=== PATIENT | female | born 1965 | race Caucasian/White ===

== ENCOUNTER 2017-05-15 10:01 | Emergency (ER) | payer OTHER ==
[2017-05-15 10:06] VITALS: RESP 16
--- NOTE | 2017-05-15 10:36 | EDPHY ---
H & P Time Seen by Provider: 05/15/17 10:04 HPI/ROS: Chief complaint. Malaise, fall HPI. 51-year-old female has been sick for 7-10 days with decreased p.o. intake. It began red nausea and fever. She has not been eating for 4-5 days. She got lightheaded and dizzy and fell this morning injuring her right arm. She has slight cough. No urinary symptoms or diarrhea. Some pain with urinating. Patient lives by herself. No chest discomfort or shortness of breath. ROS Constitutional. Fever Eyes. no problems with vision ENT. no sore throat, no nasal drainage Cardiovascular. no chest pain Respiratory. No shortness of breath however cough Abdominal. No abdominal pain but nausea and vomiting . Dysuria MS. Fall with bruise right arm Skin. no rash Lymph. no swollen glands Neuro. Lightheaded on standing today and difficulty walking Past Medical/Surgical History: Heart palpitations Social History: Lives by self. Nonsmoker. Drinks alcohol regularly Physical Exam: General Appearance: Alert well-developed female mild distress vital signs are stable. Eyes: Pupils equal and round no pallor or injection. ENT, Mouth: Mucous membranes are dry. Respiratory: There are no retractions, lungs are clear to auscultation. Cardiovascular: Regular rate and rhythm. Gastrointestinal: Abdomen is soft and nontender, no masses, bowel sounds normal. Neurological: Awake and alert, sensory and motor exams grossly normal. Skin: Warm and dry, no rashes. Musculoskeletal: Neck is supple nontender. Extremities bruise right forearm with good range of motion Psychiatric: Patient is oriented X 3, patient is tremulous Constitutional: Initial Vital Signs Temperature (C) 37.3 C 05/15/17 10:02 Heart Rate 84 05/15/17 10:02 Respiratory Rate 16 05/15/17 10:02 Blood Pressure 152/101 H 05/15/17 10:02 O2 Sat (%) 96 05/15/17 10:02 O2 Delivery Mode Room Air Allergies/Adverse Reactions: No Known Allergies Allergy (Unverified 11/18/09 09:16) Home Medications: Medication Instructions Recorded None 11/18/09 Medical Decision Making - Diagnostics Imaging Results: Imaging Impressions Chest X-Ray 05/15/17 10:50 Impression: No acute pulmonary disease. Procedures: IV normal saline. Ativan and Zofran IV ED Course/Re-evaluation: Re-evaluation 12:30 p.m. patient is stable. The patient and I had a long discussion because I think alcohol is a little significant part of this. She has elevated liver function test. She is clearly tremulous. She and I discussed depression and drinking to self medicate for depression. I encouraged her to consider discussing this with her regular physician. I have also discussed this with her brother with her permission. Patient feels she is safe at home currently for discharge. Differential Diagnosis: This certainly may have started with a viral illness causing fever and nausea vomiting. Decreased intake. Symptoms of alcohol withdrawal. Fall with bruising but no evidence for fracture. Dehydration is present. - Data Points Laboratory Results: Laboratory Results 05/15/17 09:55 05/15/17 09:55 05/15/17 05/15/17 05/15/17 11:40 09:55 09:55 WBC 3.60 10^3/uL L 10^3/uL (3.80-9.50) RBC 4.83 10^6/uL 10^6/uL (4.18-5.33) Hgb 16.3 g/dL g/dL (12.6-16.3) Hct 46.2 % % (38.0-47.0) MCV 95.7 fL fL (81.5-99.8) MCH 33.7 pg pg (27.9-34.1) MCHC 35.3 g/dL g/dL (32.4-36.7) RDW 11.8 % % (11.5-15.2) Plt Count 96 10^3/uL L 10^3/uL (150-400) MPV 9.9 fL fL (8.7-11.7) Neut % (Auto) 63.9 % % (39.3-74.2) Lymph % (Auto) 18.6 % % (15.0-45.0) [place] % (Auto) 15.8 % H % (4.5-13.0) Eos % (Auto) 0.8 % % (0.6-7.6) Baso % (Auto) 0.6 % % (0.3-1.7) Nucleat RBC Rel Count 0.0 % % (0.0-0.2) Absolute Neuts (auto) 2.30 10^3/uL 10^3/uL (1.70-6.50) Absolute Lymphs (auto) 0.67 10^3/uL L 10^3/uL (1.00-3.00) Absolute Monos (auto) 0.57 10^3/uL 10^3/uL (0.30-0.80) Absolute Eos (auto) 0.03 10^3/uL 10^3/uL (0.03-0.40) Absolute Basos (auto) 0.02 10^3/uL 10^3/uL (0.02-0.10) Absolute Nucleated RBC 0.00 10^3/uL 10^3/uL (0-0.01) Immature Gran % 0.3 % % (0.0-1.1) Immature Gran # 0.01 10^3/uL 10^3/uL (0.00-0.10) Sodium 135 mEq/L mEq/L (134-144) Potassium 3.9 mEq/L mEq/L (3.5-5.2) Chloride 94 mEq/L L mEq/L (97-110) Carbon Dioxide 25 mEq/l mEq/l (22-31) Anion Gap 16 mEq/L mEq/L (8-16) BUN 9 mg/dL mg/dL (7-23) Creatinine 0.5 mg/dL L mg/dL (0.6-1.0) Estimated GFR > 60 Glucose 101 mg/dL H mg/dL (70-100) Calcium 10.5 mg/dL H mg/dL (8.5-10.4) Total Bilirubin 1.0 mg/dL mg/dL (0.1-1.4) Conjugated Bilirubin 0.5 mg/dL mg/dL (0.0-0.5) Unconjugated Bilirubin 0.5 mg/dL mg/dL (0.0-1.1) AST 141 IU/L H IU/L (14-46) ALT 105 IU/L H IU/L (9-52) Alkaline Phosphatase 100 IU/L IU/L (38-126) Total Protein 8.7 g/dL H g/dL (6.3-8.2) Albumin 5.0 g/dL g/dL (3.5-5.0) Lipase 272.0 IU/L IU/L (23-300) Urine Color PALE YELLOW Urine Appearance CLEAR Urine pH 7.0 (5.0-7.5) Ur Specific [place] 1.006 (1.002-1.030) Urine Protein NEGATIVE (NEGATIVE) Urine Ketones TRACE H (NEGATIVE) Urine Blood NEGATIVE (NEGATIVE) Urine Nitrate NEGATIVE (NEGATIVE) Urine Bilirubin NEGATIVE (NEGATIVE) Urine Urobilinogen NEGATIVE EU EU (0.2-1.0) Ur Leukocyte Esterase NEGATIVE (NEGATIVE) Urine Glucose NEGATIVE (NEGATIVE) Medications Given: Discontinued Medications Acetaminophen (Tylenol) 1,000 mg PO EDNOW ONE Stop: 05/15/17 11:08 Last Admin: 05/15/17 11:12 Dose: 1,000 mg Sodium Chloride (Ns) 1,000 mls @ 0 mls/hr IV ONCE ONE; Wide Open PRN Reason: Protocol Stop: 05/15/17 10:51 Last Admin: 05/15/17 10:59 Dose: 1,000 mls Sodium Chloride (Ns) 1,000 mls @ 0 mls/hr IV ONCE ONE; Wide Open PRN Reason: Protocol Stop: 05/15/17 10:51 Last Admin: 05/15/17 10:59 Dose: 1,000 mls Lorazepam (Ativan Injection) 1 mg IVP EDNOW ONE Stop: 05/15/17 10:52 Last Admin: 05/15/17 10:59 Dose: 1 mg Ondansetron HCl (Zofran) 4 mg IVP EDNOW ONE Stop: 05/15/17 10:51 Last Admin: 05/15/17 11:00 Dose: 4 mg Departure - Departure Disposition: Home, Routine, Self-Care Clinical Impression: Dehydration Condition: Good Instructions: Dehydration (ED) Additional Instructions: Frequent, small sips fluids well nauseated. Gradual diet advancement. Return for worsening symptoms. Please follow-up with your physician at [place] in the next 2-3 days for re-evaluation Referrals: Patient,NotPresent [Unknown] - As per Instructions [facility] [Outside] - 2-3 days, call for appt.
[2017-05-15] MEDS ORDERED: NS 1,000 ML IV ONE ×2 (10:50)
[2017-05-15] MEDS ORDERED: ONDANSETRON 4 MG/2 ML VIAL IVP ONE (10:50)
[2017-05-15] MEDS ORDERED: LORazepam 2 MG/ML INJ IVP ONE (10:51)
[2017-05-15 11:04] LABS: % IMMATURE GRANULYOCYTES 0.3 % (0.0-1.1); ABSOLUTE IMMATURE GRANULOCYTES 0.01 10^3/uL (0.00-0.10); ADD DIFF? NO; ADD MORPH? NO; ADD SCAN? NO; ATYPICAL LYMPHOCYTE FLAG 0 (0-99); FRAGMENT RBC FLAG 0 (0-99); HEMATOCRIT 46.2 % (38.0-47.0); HEMOGLOBIN 16.3 g/dL (12.6-16.3); LEFT SHIFT FLG 0 (0-99); LIPEMIA HEMOLYSIS FLAG 90 (0-99); MEAN CELL HEMOGLOBIN 33.7 pg (27.9-34.1); MEAN CELL HEMOGLOBIN CONCENTR. 35.3 g/dL (32.4-36.7); MEAN CELL VOLUME 95.7 fL (81.5-99.8); MEAN PLATELET VOLUME 9.9 fL (8.7-11.7); PLATELET CLUMPS FLAG 0 (0-99); PLATELET COUNT 96 10^3/uL (150-400); RED BLOOD CELL COUNT 4.83 10^6/uL (4.18-5.33); RED CELL DISTRIBUTION WIDTH 11.8 % (11.5-15.2)
[2017-05-15] MEDS ORDERED: ACETAMINOPHEN 500 MG TAB PO ONE (11:07)
[2017-05-15 11:08] LABS: ALANINE AMINOTRANSFERASE 105 IU/L (9-52); ALKALINE PHOSPHATASE 100 IU/L (38-126); ANION GAP 16 mEq/L (8-16); ASPARTATE AMINOTRANSFERASE 141 IU/L (14-46); BILIRUBIN-CONJUGATED 0.5 mg/dL (0.0-0.5); BILIRUBIN-UNCONJUGATED 0.5 mg/dL (0.0-1.1); CALCIUM 10.5 mg/dL (8.5-10.4); CARBON DIOXIDE 25 mEq/l (22-31); CHLORIDE 94 mEq/L (97-110); CREATININE 0.5 mg/dL (0.6-1.0); GLOMERULAR FILTRATION RATE > 60; GLUCOSE 101 mg/dL (70-100); POTASSIUM 3.9 mEq/L (3.5-5.2); SODIUM 135 mEq/L (134-144); TOTAL PROTEIN 8.7 g/dL (6.3-8.2)
[2017-05-15] MEDS ORDERED: ACETAMINOPHEN 500 MG TAB ONE (11:08)
[2017-05-15 12:06] LABS: COLOR PALE YELLOW; LEUKOCYTE ESTERASE,URINE NEGATIVE (NEGATIVE); NITRITE,URINE NEGATIVE (NEGATIVE)
[2017-05-15 13:46] VITALS: BP 130/74; PULSE 98; TEMP 98.4; O2SAT 94
== END 2017-05-15 13:36 | disposition home or self-care (01) ==
LOC: EDUNIT#
DX: E86.0 Dehydration (principal)
CPT/HCPCS: 96374; J2060; J2405

== ENCOUNTER 2017-06-19 12:01 | Emergency (ER) | payer OTHER ==
[2017-06-19 12:25] VITALS: TEMP 98.4
--- NOTE | 2017-06-19 13:56 | EDPHY ---
H & P Time Seen by Provider: 06/19/17 13:55 HPI/ROS: Chief complaint. Fever, nausea HPI. A 51-year-old female with subjective fevers for 2 days. Slight cough. Nausea and vomiting but no diarrhea. No abdominal pain. No urinary symptoms. She is quite tremulous. Denies any trauma or falls. Denies any chest discomfort or shortness of breath. ROS Constitutional. Fever Eyes. no problems with vision ENT. no sore throat, no nasal drainage Cardiovascular. no chest pain Respiratory. Cough Abdominal. nausea and vomiting . no problems urinating MS. no calf pain/swelling, no neck/back pain, no joint pain Skin. no rash Lymph. no swollen glands Neuro. Tremulous Past Medical/Surgical History: Heart palpitations, Social History: Single, nonsmoker the, the denies recent alcohol Smoking Status: Former smoker Physical Exam: General Appearance: Alert well-developed female tremulous vital signs significant for heart rate 101 Eyes: Pupils equal and round no pallor or injection. ENT, Mouth: Mucous membranes are dry. Respiratory: There are no retractions, lungs are clear to auscultation. Cardiovascular: Regular rate and rhythm. Gastrointestinal: Abdomen is soft and nontender, no masses, bowel sounds normal. Neurological: Awake and alert, sensory and motor exams grossly normal. Skin: Warm and dry, no rashes. Bruising of various ages on extremities Musculoskeletal: Neck is supple nontender. Extremities symmetrical, full range of motion. Psychiatric: Patient is oriented X 3, there is no agitation. Constitutional: Initial Vital Signs Temperature (C) 36.9 C 06/19/17 12:20 Heart Rate 101 H 06/19/17 12:20 Respiratory Rate 20 06/19/17 12:20 Blood Pressure 139/95 H 06/19/17 12:20 O2 Sat (%) 98 06/19/17 12:20 O2 Delivery Mode Room Air Allergies/Adverse Reactions: No Known Allergies Allergy (Verified 06/19/17 12:24) Home Medications: Medication Instructions Recorded None 11/18/09 Cephalexin [Keflex (*)] 500 mg PO TID #21 cap 06/19/17 Medical Decision Making - Diagnostics Imaging Results: Imaging Impressions Chest X-Ray 06/19/17 14:10 Impression: Normal chest x-ray. Chest x-ray interpreted by me is normal Procedures: IV normal saline with initially 1 L to be given. Ativan and Zofran 4 tremulousness and nausea After review of labs more IV fluids are indicated Repeat chemistry panel after 3 L of saline ED Course/Re-evaluation: Serial re-evaluations patient continues To improve Re-evaluation again at 6:30 p.m. patient is feeling much better has no complaints. She is taking oral fluids. Patient and I discussed repeat labs which are improved. We discussed treatment plan including criteria for return importance of follow-up further evaluation. She expresses understanding and agreement Differential Diagnosis: Clearly the patient exhibits alcohol withdrawal symptoms. I suspect she has had decreased p.o. intake. She does have urinary tract infection. Normal chest x- ray without evidence for pneumonia - Data Points Laboratory Results: Laboratory Results 06/19/17 13:50 06/19/17 17:45 06/19/17 06/19/17 06/19/17 17:45 14:53 13:50 WBC RBC Hgb Hct MCV MCH MCHC RDW Plt Count MPV Neut % (Auto) Lymph % (Auto) [place] % (Auto) Eos % (Auto) Baso % (Auto) Nucleat RBC Rel Count Absolute Neuts (auto) Absolute Lymphs (auto) Absolute Monos (auto) Absolute Eos (auto) Absolute Basos (auto) Absolute Nucleated RBC Immature Gran % Immature Gran # Sodium 138 mEq/L mEq/L 139 mEq/L mEq/L (134-144) (134-144) Potassium 4.2 mEq/L mEq/L 4.5 mEq/L mEq/L (3.5-5.2) (3.5-5.2) Chloride 111 mEq/L H D mEq/L 100 mEq/L mEq/L (97-110) (97-110) Carbon Dioxide 16 mEq/l L mEq/l 13 mEq/l L mEq/l (22-31) (22-31) Anion Gap 11 mEq/L mEq/L 26 mEq/L H mEq/L (8-16) (8-16) BUN 10 mg/dL mg/dL 14 mg/dL mg/dL (7-23) (7-23) Creatinine 0.5 mg/dL L mg/dL 0.6 mg/dL mg/dL (0.6-1.0) (0.6-1.0) Estimated GFR > 60 > 60 Glucose 121 mg/dL H D mg/dL 63 mg/dL L mg/dL (70-100) (70-100) Calcium 7.8 mg/dL L D mg/dL 10.2 mg/dL mg/dL (8.5-10.4) (8.5-10.4) Urine Color YELLOW Urine Appearance CLEAR Urine pH 5.0 (5.0-7.5) Ur Specific [place] 1.024 (1.002-1.030) Urine Protein 1+ H (NEGATIVE) Urine Ketones 2+ H (NEGATIVE) Urine Blood NEGATIVE (NEGATIVE) Urine Nitrate NEGATIVE (NEGATIVE) Urine Bilirubin NEGATIVE (NEGATIVE) Urine Urobilinogen NEGATIVE EU EU (0.2-1.0) Ur Leukocyte Esterase NEGATIVE (NEGATIVE) Urine RBC 1-3 /hpf /hpf (0-3) Urine WBC 5-10 /hpf H /hpf (0-3) Ur Epithelial Cells TRACE /lpf /lpf (NONE-1+) Hyaline Casts 1-5 /lpf /lpf (0-1) Urine Mucus TRACE /lpf /lpf (NONE-1+) Urine Glucose NEGATIVE (NEGATIVE) Ethyl Alcohol < 10 mg/dL mg/dL (0-10) 06/19/17 13:50 WBC 3.71 10^3/uL L 10^3/uL (3.80-9.50) RBC 4.31 10^6/uL 10^6/uL (4.18-5.33) Hgb 14.1 g/dL g/dL (12.6-16.3) Hct 41.8 % % (38.0-47.0) MCV 97.0 fL fL (81.5-99.8) MCH 32.7 pg pg (27.9-34.1) MCHC 33.7 g/dL g/dL (32.4-36.7) RDW 11.9 % % (11.5-15.2) Plt Count 173 10^3/uL 10^3/uL (150-400) MPV 9.0 fL fL (8.7-11.7) Neut % (Auto) 68.1 % % (39.3-74.2) Lymph % (Auto) 17.3 % % (15.0-45.0) [place] % (Auto) 12.7 % % (4.5-13.0) Eos % (Auto) 0.3 % L % (0.6-7.6) Baso % (Auto) 1.3 % % (0.3-1.7) Nucleat RBC Rel Count 0.0 % % (0.0-0.2) Absolute Neuts (auto) 2.53 10^3/uL 10^3/uL (1.70-6.50) Absolute Lymphs (auto) 0.64 10^3/uL L 10^3/uL (1.00-3.00) Absolute Monos (auto) 0.47 10^3/uL 10^3/uL (0.30-0.80) Absolute Eos (auto) 0.01 10^3/uL L 10^3/uL (0.03-0.40) Absolute Basos (auto) 0.05 10^3/uL 10^3/uL (0.02-0.10) Absolute Nucleated RBC 0.00 10^3/uL 10^3/uL (0-0.01) Immature Gran % 0.3 % % (0.0-1.1) Immature Gran # 0.01 10^3/uL 10^3/uL (0.00-0.10) Sodium Potassium Chloride Carbon Dioxide Anion Gap BUN Creatinine Estimated GFR Glucose Calcium Urine Color Urine Appearance Urine pH Ur Specific [place] Urine Protein Urine Ketones Urine Blood Urine Nitrate Urine Bilirubin Urine Urobilinogen Ur Leukocyte Esterase Urine RBC Urine WBC Ur Epithelial Cells Hyaline Casts Urine Mucus Urine Glucose Ethyl Alcohol Medications Given: Discontinued Medications Cephalexin HCl (Keflex) 500 mg PO EDNOW ONE PRN Reason: Protocol Stop: 06/19/17 15:25 Last Admin: 06/19/17 15:29 Dose: 500 mg Sodium Chloride (Ns) 1,000 mls @ 0 mls/hr IV ONCE ONE; Wide Open PRN Reason: Protocol Stop: 06/19/17 14:08 Last Admin: 06/19/17 14:21 Dose: 1,000 mls Sodium Chloride (Ns) 1,000 mls @ 0 mls/hr IV EDNOW ONE; Wide Open PRN Reason: Protocol Stop: 06/19/17 15:24 Last Admin: 06/19/17 15:26 Dose: 1,000 mls Sodium Chloride (Ns) 1,000 mls @ 0 mls/hr IV EDNOW ONE; Wide Open PRN Reason: Protocol Stop: 06/19/17 15:24 Last Admin: 06/19/17 16:22 Dose: 1,000 mls Lorazepam (Ativan Injection) 1 mg IVP EDNOW ONE Stop: 06/19/17 15:25 Last Admin: 06/19/17 15:29 Dose: 1 mg Departure - Departure Disposition: Home, Routine, Self-Care Clinical Impression: Dehydration Urinary tract infection Qualifiers: Urinary tract infection type: acute cystitis Hematuria presence: without hematuria Qualified Code(s): N30.00 - Acute cystitis without hematuria Condition: Good Instructions: Dehydration (ED), Urinary Tract Infection in Women (ED) Additional Instructions: Drink plenty of fluids and stay hydrated. Diet as tolerated. Activity as tolerated. Return for worsening pain, fever, vomiting. Cephalexin as antibiotic for urinary tract infection Referrals: MILENA GRAY [Other] - 1 day, if not improved Prescriptions: Cephalexin [Keflex (*)] 500 mg PO TID #21 cap
[2017-06-19] MEDS ORDERED: NS 1,000 ML IV ONE ×3 (14:07→15:23)
[2017-06-19 14:16] LABS: % IMMATURE GRANULYOCYTES 0.3 % (0.0-1.1); ABSOLUTE IMMATURE GRANULOCYTES 0.01 10^3/uL (0.00-0.10); ADD DIFF? NO; ADD MORPH? NO; ADD SCAN? NO; ATYPICAL LYMPHOCYTE FLAG 0 (0-99); FRAGMENT RBC FLAG 0 (0-99); HEMATOCRIT 41.8 % (38.0-47.0); HEMOGLOBIN 14.1 g/dL (12.6-16.3); LEFT SHIFT FLG 0 (0-99); LIPEMIA HEMOLYSIS FLAG 80 (0-99); MEAN CELL HEMOGLOBIN 32.7 pg (27.9-34.1); MEAN CELL HEMOGLOBIN CONCENTR. 33.7 g/dL (32.4-36.7); PLATELET CLUMPS FLAG 0 (0-99); PLATELET COUNT 173 10^3/uL (150-400); RED BLOOD CELL COUNT 4.31 10^6/uL (4.18-5.33); RED CELL DISTRIBUTION WIDTH 11.9 % (11.5-15.2)
[2017-06-19 14:30] LABS: ANION GAP 26 mEq/L (8-16); CALCIUM 10.2 mg/dL (8.5-10.4); CARBON DIOXIDE 13 mEq/l (22-31); CHLORIDE 100 mEq/L (97-110); CREATININE 0.6 mg/dL (0.6-1.0); ETHANOL SERUM < 10 mg/dL (0-10); GLOMERULAR FILTRATION RATE > 60; GLUCOSE 63 mg/dL (70-100); POTASSIUM 4.5 mEq/L (3.5-5.2); SODIUM 139 mEq/L (134-144)
[2017-06-19 15:13] LABS: COLOR YELLOW; LEUKOCYTE ESTERASE,URINE NEGATIVE (NEGATIVE); NITRITE,URINE NEGATIVE (NEGATIVE)
[2017-06-19 15:15] LABS: MUCUS TRACE /lpf (NONE-1+)
[2017-06-19 15:24] VITALS: RESP 18
[2017-06-19] MEDS ORDERED: LORazepam 2 MG/ML INJ IVP ONE (15:24)
[2017-06-19] MEDS ORDERED: CEPHALEXIN 500 MG CAP PO ONE (15:24)
[2017-06-19 18:11] LABS: ANION GAP 11 mEq/L (8-16); CALCIUM 7.8 mg/dL (8.5-10.4); CARBON DIOXIDE 16 mEq/l (22-31); CHLORIDE 111 mEq/L (97-110); CREATININE 0.5 mg/dL (0.6-1.0); GLOMERULAR FILTRATION RATE > 60; GLUCOSE 121 mg/dL (70-100); POTASSIUM 4.2 mEq/L (3.5-5.2); SODIUM 138 mEq/L (134-144)
[2017-06-19 18:38] VITALS: BP 134/99; PULSE 88; O2SAT 94
== END 2017-06-19 19:02 | disposition home or self-care (01) ==
DX: N30.00 Acute cystitis without hematuria (principal); E86.0 Dehydration; E86.9 Volume depletion, unspecified; Z87.891 Personal history of nicotine dependence
CPT/HCPCS: 96374; G0480; J2060

== ENCOUNTER 2017-09-23 14:21 | Inpatient (IN) | payer OTHER ==
[2017-09-23 15:09] LABS: PLATELET COUNT 105 10^3/uL (150-400)
--- NOTE | 2017-09-23 15:10 | EDPHY ---
HPI/HX/ROS/PE/MDM Narrative: CHIEF COMPLAINT: Depression, loss of appetite HPI: The patient is a 51 y/o female with a history of "on-and-off again" depression who arrives voluntary at the recommendation of her daughter for evaluation of depression and loss of appetite. She begins by telling me, "this is silly" and "I feel totally fine, but I've been off and on with depression." According to the patient, her daughter, who is at college studying psychology in [place], was concerned about her mother and asked the patient's ex- to bring her to the hospital for evaluation. The patient initially says she believes her daughter is worried about her "because a work thing didn't work out well. When she hears my voice sometimes she's concerned." She seems reluctant to discuss why she is hear and says, "I should not be here wasting your time." When pressed , she tells me that she may be here because she was talking with her daughter about her recent divorce and might have sounded sad on the phone. She also tells me she hasn't eaten in 4 days due to being "sick, but not flu sick." She says she drinks 1-2 glasses of wine per night on occasion, though there was some question via her ex- that she has been drinking heavily recently. REVIEW OF SYSTEMS: Aside from elements discussed in the HPI, a comprehensive 10-point review of systems was reviewed and is negative. 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 Former smoker, though mentions she smokes sometimes when out with friends. 1-2 glasses of wine/ night "occasionally." Recently . Daughter away at college in [place]. PHYSICAL EXAM: General:Patient is alert, in no acute distress. ENT:Eyes are normal to inspection. ENT inspection normal. Neck: Normal inspection. Full range of motion. Respiratory:No respiratory distress. Breath sounds normal bilaterally. Cardiovascular: Regular rate and rhythm. Strong peripheral pulses. Normal cap refill. Abdomen:The abdomen is nontender to palpation. There are no peritoneal signs. Back: Normal to inspection. No tenderness to palpation. Skin: Normal color. No rash. Warm and dry. Extremities: Normal appearance. Full range of motion. Neuro: Oriented x3. Normal motor function. Normal sensory function. (Kushal Mera) ED Course: This is a 51 y/o female who presents voluntarily for evaluation of depression and acute anorexia following a recent divorce. Throughout my assessment, she seems to be minimizing her symptoms and repeatedly states she feels "fine" and does not think she needs to be here. Her exam is unremarkable. I recommended lab work and evaluation by a mental health worker, which she agrees to. 1620: Patient's blood work unremarkable except for very elevated BAL of 433. I discussed this with the patient. She denies drinking any alcohol since yesterday, and tells me that she has been in the ED all day, so she had no opportunity to drink. At this point, the patient has only been in the ED for an hour and a half, so she is clearly quite confused and intoxicated. I have placed her on a detainer pending sober evaluation and mental health evaluation. The patient did give me permission to speak to her ex- who has brought her to the ED and is in the waiting room. He explains that the patient's daughter was unable to contact her for several days which is unusual, and asked him to check on her. He found her disheveled in her home and agreed to go with him to the ED. He states she did not express suicidal thoughts to him, but has mentioned things over the years about suicide. 1930: JUAN CARLOS down to 240. 2039: Patient is beginning to feel like she is withdrawing. 25mg PO Librium administered. (Kushal Mera) MDM: 0338AM: This patient has no psychiatric complaint. Denies suicidal ideation or homicidal ideation. Denies want hurt himself or anybody else. She was intoxicated acute alcohol. She had a mental health evaluation and they have given her resources. I have met with her as well. I have answered all her questions. She has no complaints. (Raj Ng) - Data Points Laboratory Results: Laboratory Results 09/23/17 15:02 09/23/17 15:02 09/23/17 09/23/17 15:02 15:02 Seg Neutrophils % 33 % % Band Neutrophils % 1 % % Lymphocytes % 42 % % Monocytes % 21 % % Eosinophils % 2 % % Basophils % 1 % % Absolute Seg Neuts 0.87 10^/uL L 10^/uL (1.70-6.50) Absolute Band Neuts 0.03 10^3/uL 10^3/uL (0.00-0.70) Absolute Lymphocytes 1.11 10^3/uL 10^3/uL (1.00-3.00) Absolute Monocytes 0.56 10^3/uL 10^3/uL (0.30-0.80) Absolute Eosinophils 0.05 10^3/uL 10^3/uL (0.03-0.40) Absolute Basophils 0.03 10^3/uL 10^3/uL (0.02-0.10) RBC/WBC/PLT Morphology NORMAL (NORMAL) Platelet Estimate DECREASED L (ADEQ) Smear Review By Daniel ONEAL MD Sodium 145 mEq/L H mEq/L (134-144) Potassium 4.8 mEq/L mEq/L (3.5-5.2) Chloride 99 mEq/L mEq/L (97-110) Carbon Dioxide 29 mEq/l mEq/l (22-31) Anion Gap 17 mEq/L H mEq/L (8-16) BUN 11 mg/dL mg/dL (7-23) Creatinine 0.6 mg/dL mg/dL (0.6-1.0) Estimated GFR > 60 Glucose 117 mg/dL H mg/dL (70-100) Calcium 9.2 mg/dL mg/dL (8.5-10.4) TSH 2.880 uIU/mL uIU/mL (0.465-4.680) Specimen Hemolysis Ethyl Alcohol 433 mg/dL H* mg/dL (0-10) Medications Given: Discontinued Medications Chlordiazepoxide HCl (Librium) 25 mg PO EDNOW ONE Stop: 09/23/17 20:42 Last Admin: 09/23/17 20:50 Dose: 25 mg Chlordiazepoxide HCl (Librium) 25 mg PO EDNOW ONE Stop: 09/23/17 23:20 Last Admin: 09/23/17 23:42 Dose: 25 mg Chlordiazepoxide HCl (Librium) 25 mg PO EDNOW ONE Stop: 09/23/17 23:43 Last Admin: 09/23/17 23:45 Dose: 25 mg General Time Seen by Provider: 09/23/17 14:44 Initial Vital Signs: Initial Vital Signs Temperature (C) 36.4 C 09/23/17 14:26 Heart Rate 95 09/23/17 14:26 Respiratory Rate 18 09/23/17 14:26 Blood Pressure 134/88 H 09/23/17 14:26 O2 Sat (%) 90 L 09/23/17 14:26 O2 Delivery Mode Room Air Allergies/Adverse Reactions: No Known Allergies Allergy (Verified 06/19/17 12:24) Home Medications: Medication Instructions Recorded None 11/18/09 Departure - Departure Disposition: Home, Routine, Self-Care Clinical Impression: Alcoholism Condition: Good Instructions: Alcohol Intoxication (ED), Abuse of Alcohol (ED) Referrals: SUSANA ANDREWS [Other] - As per Instructions Report Scribed for: Kushal Mera Report Scribed by: Paula Cuellar Date of Report: 09/23/17 Time of Report: 15:10 Physician Review and Approval Statement: Portions of this note were transcribed by an ED scribe. I personally performed the history, physical exam, and medical decision making; and confirm the accuracy of the information in the transcribed note.
[2017-09-23] MEDS ORDERED: chlordiazePOXIDE 25 MG CAP PO ONE ×3 (20:41→23:42)
[2017-09-24] MEDS ORDERED: LORazepam 2 MG/ML INJ IVP ONE ×2 (03:46→05:55)
[2017-09-24] MEDS ORDERED: NS 1,000 ML IV ONE (03:46)
[2017-09-24] MEDS ORDERED: chlordiazePOXIDE 25 MG CAP PO ONE ×2 (03:46)
[2017-09-24] MEDS ORDERED: FOLIC ACID 1 MG TAB PO ONE (04:03)
[2017-09-24] MEDS ORDERED: THIAMINE HCL 100 MG TAB PO ONE (04:03)
[2017-09-24] MEDS ORDERED: THIAMINE HCL 100 MG TAB ONE (04:04)
[2017-09-24] MEDS ORDERED: LORazepam 2 MG/ML INJ ONE (05:54)
[2017-09-24 06:39] VITALS: TEMP 99.3
[2017-09-24] MEDS ORDERED: diphenhydrAMINE 25 MG CAP PO PRN (06:57)
[2017-09-24] MEDS ORDERED: ONDANSETRON 4 MG/2 ML VIAL IVP PRN (06:57)
[2017-09-24] MEDS ORDERED: oxyCODONE IR 5 MG TAB PO PRN (06:57)
[2017-09-24] MEDS ORDERED: HYDROmorphONE/DILAUDID 1 MG/ML INJ IVP PRN (06:57)
[2017-09-24] MEDS ORDERED: NS 1,000 ML IV SCH (07:00)
[2017-09-24] MEDS ORDERED: chlordiazePOXIDE 25 MG CAP PO PRN (07:00)
[2017-09-24] MEDS ORDERED: LORazepam 1 MG TAB PO PRN (07:33)
[2017-09-24] MEDS ORDERED: LORazepam 2 MG/ML INJ IVP PRN (07:33)
[2017-09-24] MEDS ORDERED: FOLIC ACID 1 MG TAB PO SCH (09:00)
[2017-09-24] MEDS ORDERED: MULTIVITAMINS 1 EACH TAB PO SCH (09:00)
--- NOTE | 2017-09-24 09:18 | GHP ---
[f rep st] HISTORY AND PHYSICAL DATE OF ADMISSION: 09/24/2017 SOURCE: Patient provides history. Overall appears reliable, but per review of EMR discussion with ED provider, patient has under reported some details regarding her alcohol consumption. CHIEF COMPLAINT: Lower extremity weakness. HISTORY OF PRESENT ILLNESS: This is a very pleasant 52-year-old female with past medical history significant for depression and some minimized alcohol consumption, who presents to the emergency department yesterday with complaints of depressed mood and anorexia for approximately 3 or 4 days. The patient denies any fevers, chills, sweats. Some nausea. No vomiting. No abdominal pain. No recent illnesses. She reports some depressed mood in the last several days. Patient's birthday had been approaching and she began drinking heavily over the last several days. Patient states her last drink was the date of arrival to the ER on the . Patient states that she typically has several glasses of wine on a daily basis, but had been drinking more heavily in the last several days. Apparently she had called her daughter who is in college out of state. Her daughter became concerned. She had asked the patient 's ex to check on the patient and bring her in to the ED for evaluation. The patient was noted to have an alcohol level greater than 430 in the emergency department upon arrival. She was placed on a hold and had to wait for lowering of her alcohol level to less than 100 before Mental Health could evaluate the patient. She had remained in the emergency department over approximately 16-17 hours and throughout that time, had received a total of 150 mg of Librium, 2 mg of Ativan, 1 L of normal saline, thiamine and folic acid. The patient was subsequently cleared by [facility] for discharge however, the patient had developed generalized tremors and lower extremity weakness, to the point that she required assistance to ambulate. The patient does live alone and she was not stable on her feet enough to be transferred to [facility] nor safe enough to be discharged home. REVIEW OF SYSTEMS: GENERAL: No fevers, chills, or sweats. Decreased oral intake of foods for the last 3-4 days. Patient reports increased alcohol consumption in the interim. No congestion, sore throat. SKIN: No rashes, sores. EYES: Patient does wear glasses. No acute changes in vision. CV: No chest pain, palpitations. RESPIRATORY: No shortness of breath or cough. GI: Positive for nausea. No vomiting. No diarrhea or abdominal pain reported. MUSCULOSKELETAL: Patient reports intermittent right knee pain and generalized muscle aching in her lower extremities at this time. NEUROLOGIC: Patient denies any numbness, tingling, shooting pains, or focal weakness. She denies any headache or changes in vision. PSYCH: Patient reports depressed mood, which has improved, but denies any SI or HI at this time. No anxiety. Remainder of review of systems negative except as noted above with exception of HEME: Patient does report history of easy bruising since her youth. ALLERGIES: No known drug allergies. HOME MEDICATIONS: Ibuprofen p.r.n. OTC. PAST MEDICAL HISTORY: Significant for depression and alcohol consumption. PAST SURGICAL HISTORY: Significant for x2. FAMILY HISTORY: Significant for mother with ALS. Patient denies any mental health or substance abuse history in the family. SOCIAL HISTORY: Patient lives alone. She is , 2 young adult children, both out of state attending college. The patient works part-time in [employer] for [employer]. She admits to drinking wine on a daily basis, typically 1- 2 glasses but more recently has been drinking heavily, but cannot clarify. She denies any illicit drug use. Rare tobacco abuse. CODE STATUS: Full. PHYSICAL EXAMINATION: VITAL SIGNS: In the emergency department, initial blood pressure 134/88, heart rate 95, O2 saturation 90% on room air with temperature 36.4. Current available vitals: Blood pressure 137/90, heart rate 84, respiratory rate 16, O2 saturation 99% on 2 L by nasal cannula, temperature 37.4. GENERAL: No acute distress. Pleasant, adult female is lying quietly in bed, slightly disheveled, appears fatigued but cooperative and pleasant. HEAD: Normocephalic, atraumatic. EYES: Extraocular muscles intact. Pupils equal, round, reactive to light bilaterally and symmetric. No scleral icterus or conjunctival injection noted. ENT: Mucous membranes appear dry. No oropharyngeal erythema or exudates. Dentition is in fair condition. NECK: Supple. Trachea midline. CV: Regular rate and rhythm. No murmurs, rubs, or gallops appreciated. RESPIRATORY: Lungs are clear to auscultation bilaterally. No wheezes, rales, or rhonchi appreciated. ABDOMEN: Positive bowel sounds. Soft, nontender to palpation. No rebound, guarding, or masses appreciated. No hepatosplenomegaly appreciated. : No Huang catheter in place. No suprapubic tenderness to palpation. EXTREMITIES: Patient without any cyanosis, clubbing, or edema appreciated. No lower extremity edema. Generalized weakness in the upper and lower extremities. NEURO: Patient with mild resting tremor in her hands and fasciculations noted in her tongue. Cranial nerves grossly nonfocal, 2 through 12 were evaluated. Sensations intact upper and lower extremities. No asymmetric extremity strength differential weakness. PSYCH: Patient awake, alert, and oriented x4. Affect is quite flat. Reports depression but is not tearful. Some psychomotor delay home. LABORATORY STUDIES: WBC 2.65, H and H 14.5/42.8, MCV of 97.7, platelet count 105, no bands. Sodium is 145, potassium 4.8, chloride 99, CO2 29, anion gap 17 , BUN 11, creatinine 0.6, GFR greater than 60, glucose 117, calcium 9.2. TSH is 2.80. Hemolysis noted. Urine tox is negative. Alcohol level is 433. ASSESSMENT/PLAN: A pleasant 52-year-old female, who presents after reports of depressed mood, found to be intoxicated with alcohol. 1. Alcohol withdrawal. The patient has been in the emergency department for 16 -17 hours. She has received large doses of Valium, Ativan, and continues to have some tremors and tongue fasciculations with lower extremity weakness. Mentation is appropriate. Differential at this time, most likely withdrawal related weakness versus less likely Wernicke versus electrolyte disturbance. Patient will be admitted to the SDU for close monitoring in setting of alcohol withdrawal and likely significant under reporting of her daily alcohol consumption. The patient has been placed on CIWA protocol with Librium and p.r.n. IV Ativan. Physical Therapy/Occupational Therapy will be consulted. She has already received thiamine. Will continue p.o. replacement of this and folic acid and multivitamin while in-house. Alcohol cessation encouraged. Repeat lab work will be obtained once patient arrives to floor. 2. Lower extremity weakness. Physical therapy, occupational therapy as noted above. 3. Leukopenia and thrombocytopenia. This is likely related to patient's chronic alcohol consumption. We will also check coag studies in addition. No evidence of active bleeding. We will continue to monitor closely. 4. Hypernatremia. IV fluids will continue. Repeat labs. Encourage oral intake. 5. Hyperglycemia. This is a nonfasting lab. No previous history of diabetes. We will continue to monitor. Repeat labs this morning. 6. Depressed mood. Patient has been evaluated and provided resources from [facility]. She no longer endorses any significant plans or thoughts of injury. The patient will be cleared for discharge from psychiatric perspective, but now requires medical management for alcohol withdrawal and lower extremity weakness. 7. Fluid, electrolyte, nutrition. Continue with IV fluids and encourage oral intake as tolerated for hypernatremia. We will repeat labs at this time, and replace electrolytes if needed. Regular diet has been ordered. 8. Prophylaxis. SCDs. Holding anticoagulation in setting of thrombocytopenia at this time, and while awaiting coag studies. 9. Code status is full. DISPOSITION: Patient admitted to inpatient status given noted tremors and withdrawal symptoms despite high dose of benzodiazepine therapy during the emergency stay. The patient also with under reported alcohol intake consumption and chronicity, which patient's former spouse alluded to staff that is likely very under reported and ongoing for some time. /[id number]/MODL MTDD
--- NOTE | 2017-09-24 10:12 | PDMN ---
Medical Necessity Medical necessity: Patient meets INPT criteria per physician note and [facility] Substance-Related Disorders (alcohol withdrawal: conts to have fasciculations and tremors w/LE weakness despite lge doses of Valium and Ativan in the ED; will require close monitoring in SDU on CIWA protocol w/MVI, Librium and prn Ativan; anticipated LOS > 2 midnights).
--- NOTE | 2017-09-24 10:12 | PDMN ---
Medical Necessity Medical necessity: Patient meets INPT criteria per physician note and [facility] Substance-Related Disorders (alcohol withdrawal: conts to have fasciculations and tremors w/LE weakness despite lge doses of Valium and Ativan in the ED; will require close monitoring in SDU on CIWA protocol w/MVI, Librium and prn Ativan; anticipated LOS > 2 midnights).
--- NOTE | 2017-09-24 10:12 | PDMN ---
Medical Necessity Medical necessity: Patient meets INPT criteria per physician note and [facility] [place] M-595 Substance-Related Disorders (alcohol withdrawal: conts to have fasciculations and tremors w/LE weakness despite lge doses of Valium and Ativan in the ED; will require close monitoring in SDU on CIWA protocol w/MVI, Librium and prn Ativan; anticipated LOS > 2 midnights).
[2017-09-24 10:35] LABS: PLATELET COUNT 83 10^3/uL (150-400)
[2017-09-24 10:40] VITALS: BP 119/82; PULSE 79; RESP 13; O2SAT 92
--- NOTE | 2017-09-24 10:42 | HOSPPROG ---
Hospitalist Progress Note Assessment/Plan: Patient is a 52-year-old female who presented the emergency room with lower extremity weakness. She has some history of depression and some alcohol use. She has been drinking more heavily in the last several days. Was noted in the emergency room that she had an ethyl alcohol level of 433. Today is my 1st encounter with the patient. Chart reviewed. * alcohol withdrawal -current Lauro in the intensive care unit on Librium and p.r.n. Ativan * lower extremity weakness -has some ataxia/ was unable to stand for me -? wernicke's/ reviewed w the patient about getting an MRI/ she would like this done *Thrombocytopenia-likely related to alcohol consumption * hypernatremia * leukopenia * hyperglycemia -likely stress induced * depressed mood -with cleared by mental health services *Plan: MRI, PT and OT to evaluate Subjective: Josiane has no complaints. Objective: Vital Signs Temp Pulse Resp BP Pulse Ox 37.4 C 84 16 137/90 H 99 09/24/17 06:32 09/24/17 06:32 09/24/17 06:32 09/24/17 06:32 09/24/17 06:32 Laboratory Results 09/24/17 09:55 09/23/17 09/24/17 09/25/17 05:59 05:59 05:59 Intake Total 1000 Balance 1000 - Physical Exam Constitutional: appears nourished, not in pain Eyes: PERRL Ears, Nose, Mouth, Throat: hearing normal Cardiovascular: regular rate and rhythym Respiratory: no respiratory distress Skin: warm Musculoskeletal: abnormal gait, other (unable to stand) Neurologic: AAOx3, other (tremulous w standing) Psychiatric: interacting appropriately ICD10 Worksheet Patient Problems: Problems Problem Status Onset Alcoholism Acute
[2017-09-24] MEDS ORDERED: THIAMINE HCL 500 MG in NS 100 ML IV SCH (11:15)
[2017-09-24 11:30] LABS: INR 0.96 (0.83-1.16); PROTIME(PATIENT) 12.7 SEC (12.0-15.0)
--- NOTE | 2017-09-24 13:22 | ASMTCMCOM ---
CM Note CM Note Notes: Received call from Dr Murray from [facility] regarding transfer of this pt to [facility] in [place]. Ambulance arrived prior to us receiving confirmation of acceptance. This was followed by call from YEIMI Quintero at [place] who said they can accept, Dr Marie accepting physician. Pt in agreement w/transfer. Reports/info sent w/pt and report given to RN. D/W hospitalist. FADIA Antoine will call pt's brother, Johnny to let him know about transfer. Date Signed: 09/24/2017 01:21 PM Electronically Signed By:Katarzyna Maria RN
--- NOTE | 2017-09-24 13:22 | ASMTCMCOM ---
CM Note CM Note Notes: Received call from Dr Murray from [facility] regarding transfer of this pt to [facility] in [place]. Ambulance arrived prior to us receiving confirmation of acceptance. This was followed by call from YEIMI Quintero at [place] who said they can accept, Dr Marie accepting physician. Pt in agreement w/transfer. Reports/info sent w/pt and report given to RN. D/W hospitalist. FADIA Antoine will call pt's brother, Johnny to let him know about transfer. Date Signed: 09/24/2017 01:21 PM Electronically Signed By:Katarzyna Maria RN
--- NOTE | 2017-09-24 13:23 | ASDISCHSUM ---
Discharge Information Plan Status:Acute Transfer Medically Cleared to Leave: Discharge Date: D/C Disposition: ADT D/C Disposition:[facility] Projected Discharge Date: Transportation at D/C:ALS/BLS Discharge Delay Reason: Follow-Up Date: Discharge Slot: Final Diagnosis: Placement Information Patient Contact Information Contact Name:MONICO Relationship:Other Address:[facility] [address] City:[place] Alternate Phone: State/Zip Code:[place] [address] Email: Financial Information Financial Class:HMO and PPO Plans Primary Plan Desc:[employer] INPATIENT Primary Plan Number:[id number] Secondary Plan Desc: Secondary Plan Number: Assessment Information SHERRI FADIA Progress Note FADIA Jhaveri CM Note Notes: Received call from Dr Murray from [facility] regarding transfer of this pt to [facility] in [place]. Ambulance arrived prior to us receiving confirmation of acceptance. This was followed by call from YEIMI Quintero at [facility] who said they can accept, Dr Marie accepting physician. Pt in agreement w/transfer. Reports/info sent w/pt and report given to RN. D/W hospitalist. FADIA Antoine will call pt's brother, Johnny to let him know about transfer. Date Signed: 09/24/2017 01:21 PM Electronically Signed By:Katarzyna Maria RN Intervention Information
--- NOTE | 2017-09-24 13:23 | ASDISCHSUM ---
Discharge Information Plan Status:Acute Transfer Medically Cleared to Leave: Discharge Date: D/C Disposition: ADT D/C Disposition:[facility] Projected Discharge Date: Transportation at D/C:ALS/BLS Discharge Delay Reason: Follow-Up Date: Discharge Slot: Final Diagnosis: Placement Information Patient Contact Information Contact Name:MONICO Relationship:Other Address:[facility] [address] City:[place] Alternate Phone: State/Zip Code:[place] [address] Email: Financial Information Financial Class:HMO and PPO Plans Primary Plan Desc:[employer] INPATIENT Primary Plan Number:[id number] Secondary Plan Desc: Secondary Plan Number: Assessment Information SHERRI FADIA Progress Note FADIA Jhaveri CM Note Notes: Received call from Dr Murray from [facility] regarding transfer of this pt to [facility] in [place]. Ambulance arrived prior to us receiving confirmation of acceptance. This was followed by call from YEIMI Quintero at [facility] who said they can accept, Dr Marie accepting physician. Pt in agreement w/transfer. Reports/info sent w/pt and report given to RN. D/W hospitalist. FADIA Antoine will call pt's brother, Johnny to let him know about transfer. Date Signed: 09/24/2017 01:21 PM Electronically Signed By:Katarzyna Maria RN Intervention Information
--- NOTE | 2017-09-24 13:23 | ASDISCHSUM ---
Discharge Information Plan Status:Acute Transfer Medically Cleared to Leave: Discharge Date: D/C Disposition: ADT D/C Disposition:[facility] Projected Discharge Date: Transportation at D/C:ALS/BLS Discharge Delay Reason: Follow-Up Date: Discharge Slot: Final Diagnosis: Placement Information Patient Contact Information Contact Name:MONICO Relationship:Other Address:[facility] [address] City:[place] Alternate Phone: State/Zip Code:[place] [address] Email: Financial Information Financial Class:HMO and PPO Plans Primary Plan Desc:[employer] INPATIENT Primary Plan Number:[id number] Secondary Plan Desc: Secondary Plan Number: Assessment Information SHERRI FADIA Progress Note FADIA Jhaveri CM Note Notes: Received call from Dr Murray from [facility] regarding transfer of this pt to [facility] in [place]. Ambulance arrived prior to us receiving confirmation of acceptance. This was followed by call from YEIMI Quintero at [facility] who said they can accept, Dr Marie accepting physician. Pt in agreement w/transfer. Reports/info sent w/pt and report given to RN. D/W hospitalist. FADIA Antoine will call pt's brother, Johnny to let him know about transfer. Date Signed: 09/24/2017 01:21 PM Electronically Signed By:Katarzyna Maria RN Intervention Information
--- NOTE | 2017-09-24 13:54 | GDS ---
[f rep st] DISCHARGE SUMMARY DISCHARGE DIAGNOSIS: 1. Gait instability with difficulty walking. 2. Alcohol withdrawal. 3. Thrombocytopenia. 4. Hyponatremia. 5. Leukopenia. 6. Hyperglycemia. 7. Depressed mood. HISTORY AND HOSPITAL COURSE: Briefly, the patient is a 52-year-old female with history of depression and alcohol use who presented to the emergency room yesterday with complaints of depressed mood and anorexia for approximately 3-4 months. She has some nausea, but without vomiting and no abdominal pain. She stated her last drink was on the date of arrival to the ER on the . She usually has several glasses of wine on a daily basis, but has been drinking more heavily in the last several days. Her daughter, who is in college out of state, called the patient's ex- to check on her and bring her to the ER for further evaluation. In the emergency room, she was noted to have an alcohol level of greater than 430. She was treated with Librium, Ativan, and given a liter of saline. Today, she was admitted as inpatient status. She was discharged earlier than expected because she will be transferred to [facility]. She will be going to [facility] for further evaluation. I gave report to Dr. Selin Murray in regard to the patient. Recommended an MRI if the patient still continues to have difficulty with walking. On discharge, the patient was noted to be stable. Blood pressure is 119/82, heart rate 79, respiratory rate 13, O2 saturation on room air 92%, temperature 37 Celsius. HOSPITAL COURSE: 1. Alcoholic withdrawal. She has been treated Librium and Ativan. The patient is in denial due to this. Will get further workup at the [facility]. 2. Lower extremity weakness. I tried to evaluate her and get her to stand up. I am concerned she may have Wernicke's versus some type of cerebellar involvement. I spoke with [facility] and recommended they get an MRI on her. 3. Thrombocytopenia. This is secondary to alcohol consumption. 4. Hyponatremia. Further evaluation at [facility]. 5. Leukopenia. Further evaluation. 6. Hyperglycemia. Likely stress induced. 7. Depressed mood. She was cleared by [facility]. DISCHARGE INSTRUCTIONS: Per [facility]. /[id number]/MODL MTDD
--- NOTE | 2017-09-24 13:54 | GDS ---
[f rep st] DISCHARGE SUMMARY DISCHARGE DIAGNOSIS: 1. Gait instability with difficulty walking. 2. Alcohol withdrawal. 3. Thrombocytopenia. 4. Hyponatremia. 5. Leukopenia. 6. Hyperglycemia. 7. Depressed mood. HISTORY AND HOSPITAL COURSE: Briefly, the patient is a 52-year-old female with history of depression and alcohol use who presented to the emergency room yesterday with complaints of depressed mood and anorexia for approximately 3-4 months. She has some nausea, but without vomiting and no abdominal pain. She stated her last drink was on the date of arrival to the ER on the . She usually has several glasses of wine on a daily basis, but has been drinking more heavily in the last several days. Her daughter, who is in college out of state, called the patient's ex- to check on her and bring her to the ER for further evaluation. In the emergency room, she was noted to have an alcohol level of greater than 430. She was treated with Librium, Ativan, and given a liter of saline. Today, she was admitted as inpatient status. She was discharged earlier than expected because she will be transferred to [facility]. She will be going to [facility] for further evaluation. I gave report to Dr. Selin Murray in regard to the patient. Recommended an MRI if the patient still continues to have difficulty with walking. On discharge, the patient was noted to be stable. Blood pressure is 119/82, heart rate 79, respiratory rate 13, O2 saturation on room air 92%, temperature 37 Celsius. HOSPITAL COURSE: 1. Alcoholic withdrawal. She has been treated Librium and Ativan. The patient is in denial due to this. Will get further workup at the [facility]. 2. Lower extremity weakness. I tried to evaluate her and get her to stand up. I am concerned she may have Wernicke's versus some type of cerebellar involvement. I spoke with [facility] and recommended they get an MRI on her. 3. Thrombocytopenia. This is secondary to alcohol consumption. 4. Hyponatremia. Further evaluation at [facility]. 5. Leukopenia. Further evaluation. 6. Hyperglycemia. Likely stress induced. 7. Depressed mood. She was cleared by [facility]. DISCHARGE INSTRUCTIONS: Per [facility]. /[id number]/MODL MTDD
[2017-09-27] MEDS ORDERED: THIAMINE HCL 100 MG TAB PO SCH (07:00)
== END 2017-09-24 13:08 | disposition short-term general hospital (02) | DRG 897 ==
LOC: F2N 09-24 07:44
PROVIDERS: ADMIT Family Medicine; ATTEND Internal Medicine
DX: F10.230 Alcohol dependence with withdrawal, uncomplicated (principal); F10.220 Alcohol dependence with intoxication, uncomplicated; R73.9 Hyperglycemia, unspecified; E87.0 Hyperosmolality and hypernatremia; D69.6 Thrombocytopenia, unspecified; R53.1 Weakness; D72.819 Decreased white blood cell count, unspecified
CPT/HCPCS: 80305; 96374; 97165-GO; G0480; J2060; J3411